=== PATIENT | male | born 1985 | race African-American/Black ===

== ENCOUNTER 2016-10-27 13:43 | Emergency (ER) | payer OTHER ==
[2016-10-27 15:31] VITALS: BP 124/77
== END 2016-10-27 15:31 | disposition home or self-care (01) ==
LOC: ED 13:43
DX: S29.012A Strain of muscle and tendon of back wall of thorax, initial encounter (principal); J45.909 Unspecified asthma, uncomplicated; Z79.51 Long term (current) use of inhaled steroids; V43.52XA Car driver injured in collision with other type car in traffic accident, initial encounter; Y93.I9 Activity, other involving external motion; Y99.8 Other external cause status; Y92.410 Unspecified street and highway as the place of occurrence of the external cause

== ENCOUNTER 2016-11-28 12:08 | Emergency (ER) | payer OTHER ==
[~2016-11-28] VITALS: Ht 172.7 cm; Wt 92.1 kg
[2016-11-28 13:44] LABS: BASOPHIL % 1.1 % (0-2); PLATELET COUNT 257 x10^3mcL (130-400); RED CELL DISTRIBUTION WIDTH 13.4 % (11.5-14.5)
[2016-11-28 14:01] LABS: CARBON DIOXIDE 30.2 mmol/L (21-32); CHLORIDE SERUM 106 mmol/L (98-107); CREATININE SERUM 1.3 mg/dL (0.7-1.3); GFR1 > 60 mL/min; GLUCOSE SERUM 83 mg/dL (74-106); SODIUM SERUM 142 mmol/L (136-145)
[2016-11-28 14:05] LABS: ALKALINE PHOSPHATASE 64 U/L (46-116); ALT/SGPT 35 U/L (16-63); AST/SGOT 21 U/L (15-37); CHOLESTEROL 176 mg/dL (<200); LIPASE 74 IU/L (73-393); TOTAL PROTEIN, SERUM 7.5 g/dL (6.4-8.2); TRIGLYCERIDES 97 mg/dL (<150)
[2016-11-28 14:07] LABS: CHOLESTEROL/HDL RATIO 2.7; HDL CHOLESTEROL 66 mg/dL (40-60)
[2016-11-28 14:17] LABS: FREE T4 1.02 ng/dL (0.76-1.46); FREE THYROXINE INDEX 3.3 ug/dL (1.4-4.5); T4(THYROXINE) 9.3 ug/dL (4.7-13.3)
[2016-11-28 14:31] LABS: microscopic required? YES; urine erythrocyte NEGATIVE (NEGATIVE)
[2016-11-28 14:59] LABS: AMPHETAMINE QUAL UR NONE DETECTED (NEG <=1000)
[2016-11-28 16:03] LABS: T3 TOTAL 1.03 ng/mL
[2016-11-28 16:05] VITALS: BP 131/78
== END 2016-11-28 16:05 | disposition left against medical advice (07) ==
LOC: ED 12:08
PROVIDERS: Specialist
DX: R53.1 Weakness (principal); R00.1 Bradycardia, unspecified; R06.02 Shortness of breath; R05 Cough; J45.909 Unspecified asthma, uncomplicated; Z79.51 Long term (current) use of inhaled steroids
CPT/HCPCS: 36415; 83880; 84439; Q0092

== ENCOUNTER 2016-11-30 18:49 | Inpatient (IN) | payer OTHER ==
[~2016-11-30] VITALS: Ht 172.7 cm; Wt 96.8 kg
[2016-11-30 20:21] LABS: PLATELET COUNT 249 x10^3mcL (130-400); RED CELL DISTRIBUTION WIDTH 13.5 % (11.5-14.5)
[2016-11-30 20:28] LABS: CALCIUM 8.6 mg/dL (8.5-10.1); CARBON DIOXIDE 27.2 mmol/L (21-32); CHLORIDE SERUM 106 mmol/L (98-107); CREATININE SERUM 1.2 mg/dL (0.7-1.3); GFR1 > 60 mL/min; GLUCOSE SERUM 90 mg/dL (74-106); POTASSIUM SERUM 3.7 mmol/L (3.5-5.1); SODIUM SERUM 140 mmol/L (136-145)
[2016-11-30 20:32] LABS: ALBUMIN 3.8 g/dL (3.4-5.0); ALKALINE PHOSPHATASE 57 U/L (46-116); ALT/SGPT 29 U/L (16-63); AST/SGOT 17 U/L (15-37); BILIRUBIN TOTAL 0.93 mg/dL (0.20-1.00); CHOLESTEROL 164 mg/dL (<200); LIPASE 70 IU/L (73-393); TOTAL PROTEIN, SERUM 6.9 g/dL (6.4-8.2); TRIGLYCERIDES 112 mg/dL (<150)
[2016-11-30 20:39] LABS: CHOLESTEROL/HDL RATIO 2.6; FREE T4 0.93 ng/dL (0.76-1.46); FREE THYROXINE INDEX 2.4 ug/dL (1.4-4.5); HDL CHOLESTEROL 63 mg/dL (40-60); T4(THYROXINE) 7.4 ug/dL (4.7-13.3)
[2016-11-30 20:58] LABS: UA SPECIFIC GRAVITY 1.015 (1.005-1.035); microscopic required? YES; urine erythrocyte NEGATIVE (NEGATIVE)
[2016-11-30 21:11] LABS: T3 TOTAL 1.17 ng/mL
[2016-11-30 21:55] VITALS: BP 119/74
[2016-12-01 00:24] LABS: MAGNESIUM 2.2 mg/dL (1.8-2.4); PHOSPHOROUS 4.1 mg/dL (2.5-4.9)
[2016-12-01 05:22] VITALS: BP 135/77
[2016-12-01 06:09] LABS: BASOPHIL % 0.8 % (0-2); PLATELET COUNT 224 x10^3mcL (130-400); RED CELL DISTRIBUTION WIDTH 13.5 % (11.5-14.5)
[2016-12-01 06:33] LABS: CALCIUM 8.5 mg/dL (8.5-10.1); CARBON DIOXIDE 27.2 mmol/L (21-32); CHLORIDE SERUM 108 mmol/L (98-107); CREATININE SERUM 1.2 mg/dL (0.7-1.3); GFR1 > 60 mL/min; GLUCOSE SERUM 97 mg/dL (74-106); POTASSIUM SERUM 3.8 mmol/L (3.5-5.1); SODIUM SERUM 141 mmol/L (136-145)
[2016-12-01 07:30] VITALS: BP 131/82
[2016-12-01 07:40] LABS: AMPHETAMINE QUAL UR NONE DETECTED (NEG <=1000)
[2016-12-01 11:30] VITALS: BP 126/77
[2016-12-01 15:58] VITALS: BP 123/73
[2016-12-01 20:00] VITALS: BP 144/85
[2016-12-02 00:12] VITALS: BP 119/66
[2016-12-02 04:00] VITALS: BP 128/63
[2016-12-02 05:42] LABS: BASOPHIL % 0.5 % (0-2); PLATELET COUNT 230 x10^3mcL (130-400); RED CELL DISTRIBUTION WIDTH 13.6 % (11.5-14.5)
[2016-12-02 05:49] LABS: CALCIUM 8.3 mg/dL (8.5-10.1); CARBON DIOXIDE 27.7 mmol/L (21-32); CHLORIDE SERUM 107 mmol/L (98-107); CREATININE SERUM 1.2 mg/dL (0.7-1.3); GFR1 > 60 mL/min; GLUCOSE SERUM 107 mg/dL (74-106); MAGNESIUM 2.2 mg/dL (1.8-2.4); PHOSPHOROUS 4.4 mg/dL (2.5-4.9); POTASSIUM SERUM 3.7 mmol/L (3.5-5.1); SODIUM SERUM 143 mmol/L (136-145)
[2016-12-02 07:37] VITALS: Ht 172.7 cm; Wt 96.8 kg
[2016-12-02 08:51] VITALS: BP 123/69
[2016-12-02 15:10] VITALS: BP 119/68
[2016-12-02 19:40] VITALS: BP 123/73
[2016-12-02 23:32] VITALS: BP 138/78
[2016-12-03 06:11] LABS: BASOPHIL % 0.6 % (0-2); PLATELET COUNT 215 x10^3mcL (130-400); RED CELL DISTRIBUTION WIDTH 13.7 % (11.5-14.5)
[2016-12-03 06:48] VITALS: BP 103/64
[2016-12-03 06:57] LABS: CALCIUM 8.4 mg/dL (8.5-10.1); CARBON DIOXIDE 26.6 mmol/L (21-32); CHLORIDE SERUM 106 mmol/L (98-107); CREATININE SERUM 1.3 mg/dL (0.7-1.3); GFR1 > 60 mL/min; GLUCOSE SERUM 92 mg/dL (74-106); PHOSPHOROUS 4.4 mg/dL (2.5-4.9); POTASSIUM SERUM 3.8 mmol/L (3.5-5.1); SODIUM SERUM 142 mmol/L (136-145)
[2016-12-03 09:58] VITALS: BP 110/74
[2016-12-03 13:44] VITALS: BP 126/80
[2016-12-03] MEDS ORDERED: FER300 PO (16:32)
[2016-12-03] MEDS ORDERED: IBUPROFEN400 MG PO (16:33)
[2016-12-03] MEDS ORDERED: NORCO1 TA1 PO (16:33)
[2016-12-03] MEDS ORDERED: COLACE100 MG PO (16:34)
[2016-12-03 17:39] VITALS: BP 126/80
[2016-12-03 18:14] VITALS: BP 130/83
== END 2016-12-03 18:18 | disposition home or self-care (01) | DRG 171 ==
LOC: ED 18:49 → DU 20:49 → IC 20:49 → DU 21:44 → IC 12-01 05:37 → DU 12-01 06:44 → IC 12-01 06:50 → DU 12-02 23:20
PROVIDERS: Internal Medicine Clinical Cardiac Electrophysiology; Specialist; ADMIT Family Medicine
PROC: 02HK3JZ Insertion of Pacemaker Lead into Right Ventricle, Percutaneous Approach (ICD-10-PCS; 2016-12-02)
PROC: 02H63JZ Insertion of Pacemaker Lead into Right Atrium, Percutaneous Approach (ICD-10-PCS; 2016-12-02)
PROC: 0JH606Z Insertion of Pacemaker, Dual Chamber into Chest Subcutaneous Tissue and Fascia, Open Approach (ICD-10-PCS; principal; 2016-12-02 10:30)
DX: I44.2 Atrioventricular block, complete (principal); N17.0 Acute kidney failure with tubular necrosis; K72.90 Hepatic failure, unspecified without coma; E86.0 Dehydration; R80.9 Proteinuria, unspecified; F12.10 Cannabis abuse, uncomplicated; Z68.30 Body mass index [BMI] 30.0-30.9, adult; F17.210 Nicotine dependence, cigarettes, uncomplicated; J45.909 Unspecified asthma, uncomplicated; G90.9 Disorder of the autonomic nervous system, unspecified; E66.9 Obesity, unspecified; E87.8 Other disorders of electrolyte and fluid balance, not elsewhere classified; E83.51 Hypocalcemia; I08.0 Rheumatic disorders of both mitral and aortic valves; R71.8 Other abnormality of red blood cells
CPT/HCPCS: 33208; 83880; 84439; 87804; 90658; C1785; J0690; J2001; J2250; J2270; J2405; J3010; J3370; J7030; J7050; Q0092; Q9967

== ENCOUNTER 2017-03-01 13:38 | Emergency (ER) | payer OTHER ==
[~2017-03-01] VITALS: Ht 172.7 cm; Wt 93.4 kg
[~2017-03-01 13:38] MED LIST: COLACE100 MG PO; FER300 PO; IBUPROFEN400 MG PO; NORCO1 TA1 PO
[2017-03-01 13:42] VITALS: Ht 172.7 cm; Wt 93.4 kg
[2017-03-01 14:43] LABS: BASOPHIL % 0.7 % (0-2); PLATELET COUNT 249 x10^3mcL (130-400); RED CELL DISTRIBUTION WIDTH 14.1 % (11.5-14.5)
[2017-03-01 14:56] LABS: CALCIUM 8.9 mg/dL (8.5-10.1); CARBON DIOXIDE 25.3 mmol/L (21-32); CHLORIDE SERUM 103 mmol/L (98-107); CREATININE SERUM 1.2 mg/dL (0.7-1.3); GFR1 > 60 mL/min; GLUCOSE SERUM 105 mg/dL (74-106); POTASSIUM SERUM 3.9 mmol/L (3.5-5.1); SODIUM SERUM 139 mmol/L (136-145)
[2017-03-01 15:01] LABS: ALBUMIN 3.9 g/dL (3.4-5.0); ALKALINE PHOSPHATASE 66 U/L (46-116); ALT/SGPT 30 U/L (16-63); AST/SGOT 16 U/L (15-37); BILIRUBIN TOTAL 0.6 mg/dL (0.20-1.00); TOTAL PROTEIN, SERUM 7.2 g/dL (6.4-8.2)
[2017-03-01 16:04] VITALS: BP 140/80
== END 2017-03-01 16:04 | disposition home or self-care (01) ==
LOC: ED 13:38
PROVIDERS: Emergency Medicine
DX: R07.89 Other chest pain (principal); J45.909 Unspecified asthma, uncomplicated; Z95.0 Presence of cardiac pacemaker; Z86.79 Personal history of other diseases of the circulatory system
CPT/HCPCS: 36415; 83880; 85378; Q0092